=== PATIENT | female | born 1965 | race Caucasian/White ===

== ENCOUNTER → 2019-04-22 17:57 | Outpatient (CLI) | payer OTHER, SELFPAY ==
[2019-04-22 19:17] LABS: Add Manual Diff / Slide Review NO; Basophils Absolute Auto 100 /uL (0-100); Basophils Percent Auto 1.1 % (0-2); Eosinophils Absolute Auto 100 /uL (0-450); Eosinophils Percent Auto 2.6 % (2-4); Hematocrit 42.8 % (36-46); Hemoglobin 14.9 g/dL (12.0-16.0); Lymphocytes Absolute Auto 1900 /uL (1100-4500); Lymphocytes Percent Auto 39.1 % (25-40); Mean Corpuscular HGB Conc 34.9 % (30-36); Mean Corpuscular Hemoglobin 31.2 PG (26-34); Mean Corpuscular Volume 89.5 fL (80-100); Monocytes Absolute Auto 400 /uL (0-900); Monocytes Percent Auto 7.8 % (3-14); Neutrophils Absolute Auto 2400 /uL (1500-7000); Neutrophils Percent Auto 49.4 % (50-75); Platelet Count 320 X10^3/uL (150-400); Red Blood Cell Count 4.79 X10^6/uL (4.0-5.2); Red Cell Distribution Width 12.7 % (11.6-14.8); White Blood Cell Count 4.8 X10^3/uL (4.5-11.0)
[2019-04-22 19:31] LABS: Blood Urea Nitrogen 18 mg/dL (7-17); Calcium 9.7 mg/dL (8.4-10.2); Carbon Dioxide 29 mmol/L (22-32); Chloride 104 mmol/L (98-107); Estimated Glomerular Filt Rate > 60.0 mL/min (>60); Glucose 84 mg/dL (70-100); HEMOLYSIS < 15 (0-50); Potassium 3.9 mmol/L (3.4-5.1); Sodium 141 mmol/L (137-145)
== END ==
PROVIDERS: Referring Provider Orthopaedic Surgery Foot and Ankle Surgery; Visit Provider Orthopaedic Surgery Foot and Ankle Surgery
DX: Z01.818 Encounter for other preprocedural examination (principal); Z01.812 Encounter for preprocedural laboratory examination
CPT/HCPCS: 36415; 80048; 85025; 93005

== ENCOUNTER 2019-04-23 06:21 | Day surgery (SDC) | payer OTHER, SELFPAY ==
[2019-04-21 09:57] VITALS: BMI 24.6
[2019-04-23] VITALS (8 sets, daily range): BP systolic 92–145; BP diastolic 43–83; PULSE 72–87; RESP 10–16; TEMP 36.1–36.5; O2SAT 98–100; BMI 23.8
--- NOTE | 2019-04-23 | DI.RAD.S_ITS ---
PROCEDURE: XR CALCANEOUS LT MIN 2V INDICATIONS: LEFT ANKLE AND HEEL REPAIR TECHNIQUE: Two views of the calcaneus were acquired. COMPARISON: [facility] [place], [place], XR FOOT 3 VIEWS WEIGHT BEARING LEFT, 04/01/2019, 16:16. [facility] [place], [place], XR ANKLE 3 VIEWS WEIGHT BEARING LEFT, 04/01/2019, 16:19. FINDINGS: Bones: No fractures or dislocations but there has been a diagonal osteotomies through the junction of the middle and posterior thirds of the calcaneus, with 2 cannulated axial fixation screws stabilizing the osteotomy site with offset, for healing. Additionally, partially visualized at the base of the first metatarsal bone is a new finding of a presumed osteotomy and 4 separate fixation screws, only partially visualized. No suspicious bony lesions. Soft tissues: No suspicious calcifications. Achilles tendon appears normal. IMPRESSION: Operative intervention with osteotomy and operative fusion along the osteotomy plane at the calcaneus, with normal alignment of axial cannulated screws to establish offset healing. Additional partially visualized osteotomy with screw fixation noted at the base of the first metatarsal bone. Dictated by: Jonathan Salazar M.D. on 04/23/2019 at 12:16 Approved by: Jonathan Salazar M.D. on 04/23/2019 at 12:19
--- NOTE | 2019-04-23 07:02 | PM.PREOP ---
Pre-operative Note Interval Note History & Physical reviewed/Exam performed by Physician: Yes Changes to H&P: No
[2019-04-23] MEDS: LACTATED RINGERS 1,000 ML 42 ML IV ×2 (07:14→09:07)
[2019-04-23] MEDS: CEFAZOLIN 2 GM/100 ML FROZ.PIGGY IV (07:55)
--- NOTE | 2019-04-23 08:33 | SUR.OPER ---
Supine on padded OR bed, head on pillow, arm padded and tucked at side, legs uncrossed, safety belt at thigh, tape over blanket over lower legs .
[2019-04-23] MEDS: BUPIVACAINE 0.25% W/ EPI 30 ML VIAL INJ (11:58)
--- NOTE | 2019-04-23 12:40 | P.OP_ITS ---
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 Peroneus brevis tear, equinus contracture) Procedure & Clinicians Procedure: 1. Lateralizing osteotomy calcaneus left CPT 53668 2. Transfer posterior tibialis tendon to the dorsum of the foot CPT code 57592 3. Dorsiflexion osteotomy 1st metatarsal CPT code 30630 4. Modified Brostrom lateral ligament reconstruction left ankle 83983 5. Complete release plantar fascia CPT code 85982 6. Transfer peroneus longus to peroneus brevis tendon 42489 7. [place] lengthening Achilles tendon 48203 This procedure was performed with a 22 modifier for a complex reconstruction procedure requiring a foot and ankle specially trained orthopedic surgeon with multiple procedures osteotomies and tendon transfers to correct severe equina cavovarus foot. The ophthalmology surgical technician was required and crucial for all aspects of the case including exposure/ positioning / fixation and closure. 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 This has been under treated in the patient[place]. She presents now with a difficulty walking walking on the lateral border of her foot with a severe cavovarus deformity. This causes heard pain and difficulty weight- bearing. She has been indicated for correction of the foot if it deformity. Additionally she does have some early arthritic changes and talar tilting at the ankle. We discussed a wide variety of procedures and have a selected a joint sparing foot reconstruction to include lateralizing calcaneal osteotomy tendon transfers dorsiflexion osteotomy of the 1st ray and lateral ligament repair. Discussed in detail with the patient and the use of a threat analyst that the patient has a severe deformity and may require multiple procedures to addre ss. She also may have persistent pain and progressive arthritis that may require additional procedures in the future. No guarantees were made. The risks and benefits of the procedure have been discussed with the patient even opportunity to ask questions. The risks of surgery include but are not limited to infection, malunion, nonunion, persistence of pain, painful hardware, damage to nerves and blood vessels, posttraumatic arthritis, DVT, PE, cardiopulmonary complications and . The patient expressed a thorough understanding of the risks and benefits of surgery and has elected to proceed. Consent was signed. Surgeon: Prerna Cuellar Healthcare Administrator: Valentina Dale Anesthesia Type: General Operative Notes Findings: Stable varus deformity of the left foot. With additional talar tilt. This is partly correctable. And equinus contracture with dorsiflexion not greater than 0 with the knee extended and flexed. Hook style percutaneous Achilles lengthening was performed improving the ankle dorsiflexion. Additionally the complete plantar fusion fascia release allowed further correction of the hindfoot. The posterior tibialis tendon was found to be tot deforming force this was released and transferred laterally to the dorsum of the foot. Additionally a lateralizing calcaneal osteotomy with a small wire wedge component was utilized improved the hindfoot varus deformity. This was fixed with 2 x 6.7 Arthrex cannulated screws. Next a dorsiflexion osteotomy of the 1st metatarsal was completed and fixed with a 4 hole low-profile plate and 2.4 screws. The peroneal tendons were severely tendinotic. There was a longitudinal tear of the peroneus brevis at the level of the lateral malleolus. This was debrided excisionally to remove the torn section. The peroneus longus tendon was then tenodesed to the peroneus brevis and cut distally to eliminate this deforming force. Next to the Brostrom lateral ligament repair was completed with the patient's talar tilt. This was done utilizing suture tack anchors and a separate 2 0 FiberWire for the CFL repair. This eliminated the talar tilt. Finally the posterior tibialis tendon was brought to the dorsum of the foot and fixed to the cuboid with a bio tenodesis screw. Unfortunately on trials this did lose a fixation therefore was redone utilizing a separate suture anchor and bone tunnel into the cuboid from the Arthrex set holding the tendon transfer securely Closure Type: primary Specimen(s): none sent Prosthetic devices, grafts, tissues, transplants, or devices: Arthrex 6.7 cannulated screws Arthrex 4 hole 2 for plate for the 1st metatarsal osteotomy Suture tacks for the Brostrom repair Arthrex suture anchor and 4.75 x 15 bio tenodesis screw for the posterior tibialis tendon transfer Applied: other (Splint) Estimated Blood Loss (mL): 50 Tourniquet time (min): 178 Procedure in detail: Patient was seen in the preoperative area the site of surgery was marked informed consent performed and confirmed. Patient was then brought back to the operating room by the anesthesia team placed supine on the operative table. A peripheral nerve block was placed by the anesthesia team for postoperative pain control. Patient was positioned supine on the operative table. All bony prominences were well-padded. Well-padded thigh tourniquet was placed. Formal time-out procedure was performed confirming the patient's side and site of surgery administration of appropriate preoperative antibiotics and presence of informed consent. All were in agreement. Attention was then turned to the left foot. An Esmarch was utilized for exsanguination and the tourniquet was raised on the thigh to 250 mm of mercury. Plantar fascia was tolerant a longitudinal incision at the border of the foot was made careful dissection was taken through the subcutaneous tissues. The plantar fascia was isolated with care operating the fascia and protecting the neurovascular structures. The complete plantar fascia release was then completed with scissors. Next attention was turned to the 2nd medial deforming force the posterior tibialis tendon. A distal incision was made at the navicular tuberosity and the posterior tibialis tendon was isolated and released from the navicular. A 2nd incision about 4 cm proximal to the medial malleolus was made just off the back of the tibia this was made longitudinally with care dissecting through the subcutaneous tissues to the tendons and the posterior tibialis tendon was again localized approximately the distal release was then brought into the proximal wound and the end of this tendon was whip stitched for later transfer. Attention was then turned to the lateralizing calcaneal osteotomy. Utilizing the fluoroscopy a location for the osteotomy was planned the oblique incision along the calcaneus tuberosity was made on the lateral aspect of the foot this was taken down to bone with the periosteal elevator a clearing off the side of the bone. A K-wire was inserted to plan the osteotomy and a small lateral based wedge was taken out. The osteotome and Medora were used to gently mobilize the medial periosteum and allow lateral translation of the osteotomy. Utilizing lateral and axial fluoroscopy this was translated and rotated correcting the varus. This was then pinned and then fixed with 2x 6.7 cannulated screws from the Arthrex set. The screw heads were countersunk. Next attention was turned to the 1st metatarsal for the dorsiflexion osteotomy. Proximal 1st metatarsal was isolated under fluoroscopic imaging and an incision made dorsally. Tendons were protected and retracted exposing the proximal 1st metatarsal. The TP a saw was used to make a 1st cut proximal parallel to the metatarsal and joint and then a 2nd dorsal based wedge approximately 2-3 mm was then removed. Bone was flexed up reducing the closing osteotomy and this was pinned with a K-wire and stabilized with a 4 hole L low-profile 2.4 plate from the Arthrex set Then attention was turned laterally. A long curved incision was taken from behind the lateral malleolus along the peroneal tendons over the distal fibula towards the sinus tarsi. This was taken to the since subcutaneous tissues. Peroneal sheath was opened Medora was placed in around the corner of the lateral malleolus and the sheath was opened over this making sure that there is appropriate flaps left for repair. The ATFL and CFL were attenuated. There is gross talar tilt. The lateral ankle ligament remnants were elevated off of the distal fibula and a separate periosteal fibular flap was elevated as well. The inferior extensor retinaculum was for a Wilcox modification repair. The end of the fibula was debrided using a rongeur and 2x 3.0 suture tacks from the Arthrex system were placed at the distal fibula in the area of the ATFL insertion. The CFL was separately repaired utilizing a 2 FiberWire placed through the distal CFL and then drill holes through the distal fibula and this was tied over a bone bridge. This suture tacks were placed in the standard fashion and the sutures advanced through the ATFL in a horizontal mattress fashion and tied while the foot was held in eversion correcting the laxity and tilt. Additional suture was used for the Wilcox modification advancing the inferior extensor retinaculum to the fibular periosteum and this was tied again using the nonabsorbable suture. This corrected the talar tilt and was confirmed under fluoroscopy. Next attention was turned to the peroneus longus to brevis transfer. The peroneus brevis had a large longitudinal tear at the level of the lateral malleolus. This was debrided and excised preserving 50% of the peroneus brevis. The proximal portion of the peroneus brevis and longus were tendinotic and this was thoroughly debrided. Then distally the peroneus longus was cut and then more proximally a tenodesed in a [id number] fashion using FiberWire to the peroneus brevis to complete the transfer. Then attention was turned to the posterior tibialis tendon transfers the dorsum to the foot. Unfortunately posterior tibialis tendon was quite diminutive and short therefore it was not thought that the tendon would reach all the way to the lateral cuneiform therefore the cuboid was selected as a transfer site. The tendon was 1st brought around the back of the tibia into the interosseous membrane a anterior incision was made directly over the tendon Passer care was taken to protect the superficial peroneal nerve. A section of the interosseous membrane was removed to help with gliding. Then a subcutaneous tunnel under the skin was taken to the level of the cuboid and the posterior tibialis tendon was passed through this. A guidewire was placed through the cuneiform under fluoroscopic guidance this was overdrilled with a 5 selected as based off the measurement of the tendon which fit easily through a 5 mm. A 4.75 tenodesis screw was selected. This was pulled through the bottom of the foot and the bio tenodesis screw placed. This was supplemented with a Arthrex suture anchor for additional fixation. Unfortunately upon removing dorsiflexion pressure from the bottom the foot and repositioning the foot for confirmatory x-ray was noted that the transfer came loose. At this point new bone tunnel was drilled in the cuboid and additional FiberWire suture was utilized to anchor the tendon transfer to the dorsum of the foot which held through range of motion and with testing. Next the tourniquet was released. Hemostasis was achieved. The toes pinked up well. Wounds were irrigated and closed in a layered fashion with 2 O Vicryl, 4 0 Monocryl and 3 O nylon. Small amount took up approximately 10 cc of additional local anesthetic was injected medially along the incisions for local anesthetic. Dressings were placed with Xeroform gauze Webril and a bulky Abel dressing and a U and posterior splint. The patient was woken from anesthesia and taken to recovery room in good condition. There no immediate complications from this procedure. All counts were correct. Complications: none Post-operative Condition: stable Disposition: PACU Plan for aftercare: Patient will be nonweightbearing for 6 weeks. She will be in a splint the 1st 2 weeks. Her sutures will stay in place for a minimum 2 weeks. If any of them do not look ready to come out, then these remain in place until she sees me at the appointment in May. They are fine to stay for 6 weeks if needed. Patient will go into a tall boot or a short-leg nonweightbearing cast at the 1st appointment. Either must be worn at all times, even at night. She will remain nonweightbearing on the operative leg for 6 weeks. Aspirin will be taken for 6 weeks daily for DVT prophylaxis.
== END 2019-04-23 13:47 | disposition home or self-care (01) ==
PROVIDERS: Referring Provider Orthopaedic Surgery Foot and Ankle Surgery; Visit Provider Orthopaedic Surgery Foot and Ankle Surgery
PROC: (CPT 28300; principal; 2019-04-23 07:45)
DX: M21.6X2 Other acquired deformities of left foot (principal); M25.372 Other instability, left ankle; M67.88 Other specified disorders of synovium and tendon, other site
CPT/HCPCS: 28300; 27691; 28306; 27698; 28008; 27692; 73650; 76000; J0690; J1100; J1170; J2250; J2405; J2704; J3010